=== PATIENT | male | born 1995 | race Caucasian/White ===

== ENCOUNTER 2018-06-03 19:51 | Emergency (ER) | payer BC ==
--- NOTE | 2018-06-03 20:45 | EDPHY ---
H & P Stated Complaint: SOB, cough, wheezing, refered from kristal, low peak flow Time Seen by Provider: 06/03/18 20:22 HPI/ROS: CHIEF COMPLAINT: Shortness of breath HISTORY OF PRESENT ILLNESS: 23-year-old male with asthma presents with shortness of breath. Onset of wheezing and shortness of breath 2 days ago. He was seen at the [facility] 2 days ago and given a shot of steroids and an albuterol nebulized breathing treatment. He was started on prednisone yesterday and took Prednisone 60 mg x 1 yesterday evening. Tonight his chest felt tight any had increased shortness of breath. Associated with an occasional cough. REVIEW OF SYSTEMS: complete 10 point ROS reviewed and is negative except for the noted elements in the HPI - Personal History Current Tetanus/Diphtheria Vaccine: Yes Current Tetanus Diphtheria and Acellular Pertussis (TDAP): Yes - Medical/Surgical History Hx Asthma: Yes Hx Chronic Respiratory Disease: No Hx Diabetes: No Hx Cardiac Disease: No Hx Renal Disease: No Hx Cirrhosis: No Hx Alcoholism: No Hx HIV/AIDS: No Hx Splenectomy or Spleen Trauma: No Other PMH: asthma, appendectomy - Social History Smoking Status: Never smoked Constitutional: Initial Vital Signs Temperature (C) 36.7 C 06/03/18 19:55 Heart Rate 81 06/03/18 19:55 Respiratory Rate 20 06/03/18 19:55 Blood Pressure 153/85 H 06/03/18 19:55 O2 Sat (%) 95 06/03/18 19:55 O2 Delivery Mode Room Air Allergies/Adverse Reactions: No Known Allergies Allergy (Unverified 06/03/18 20:35) Home Medications: Medication Instructions Recorded Adderall 30 mg Tablet 06/03/18 Cefdinir 06/03/18 Prednisolone 06/03/18 Medical Decision Making ED Course/Re-evaluation: Peak flow 375, O2 sat normal. Albuterol neb given. Feels better, decreased wheezing, will continue current treatment plan. Pt given a spacer for the albuterol inhaler. - Data Points Medications Given: Discontinued Medications Albuterol (Proventil Neb) 9 ml I[facility] EDNOW ONE Stop: 06/03/18 20:52 Last Admin: 06/03/18 21:04 Dose: Not Given Albuterol (Proventil Neb) 3 ml IH EDNOW ONE Stop: 06/03/18 21:02 Last Admin: 06/03/18 21:04 Dose: 3 ml Departure - Departure Disposition: Home, Routine, Self-Care Clinical Impression: Exacerbation of asthma Qualifiers: Asthma severity: moderate Asthma persistence: unspecified Qualified Code(s): J45.901 - Unspecified asthma with (acute) exacerbation Condition: Good Instructions: Bronchospasm (ED) Additional Instructions: Drink plenty of fluids. Take medications as prescribed. [facility] or any concerns. Referrals: [facility],. [Clinic] - As per Instructions
[2018-06-03] MEDS ORDERED: ALBUTEROL 3 ML DEYVIAL IH ONE (21:01)
[2018-06-03] MEDS ORDERED: ALBUTEROL 3 ML DEYVIAL ONE (21:01)
[2018-06-03] MEDS: ALBUTEROL 3 ML DEYVIAL IH ONE ×2 (21:01→21:04)
[2018-06-03 21:14] VITALS: BP 137/83
== END 2018-06-03 21:36 | disposition home or self-care (01) ==
DX: J45.901 Unspecified asthma with (acute) exacerbation (principal)
CPT/HCPCS: J7613